=== PATIENT | female | born 2000 | race African-American/Black ===

== ENCOUNTER 2022-09-15 22:53 | Emergency (ER) | payer OTHER | END 2022-09-16 01:18 | disposition home or self-care (01) | LOC: CSHERS 22:53 | DX: O20.0 Threatened abortion (principal); Z3A.01 Less than 8 weeks gestation of pregnancy; F17.210 Nicotine dependence, cigarettes, uncomplicated | CPT/HCPCS: 76856 ==

== ENCOUNTER 2022-09-18 17:31 | Emergency (ER) | payer OTHER | END 2022-09-18 20:26 | LOC: CSHERS 17:31 | DX: O03.9 Complete or unspecified spontaneous abortion without complication (principal); F17.210 Nicotine dependence, cigarettes, uncomplicated | CPT/HCPCS: 36415; 84702; 99282 ==

== ENCOUNTER 2023-02-22 19:49 | Emergency (ER) | payer OTHER | END 2023-02-22 22:49 | disposition home or self-care (01) | LOC: CSHERS 19:49 | DX: O03.9 Complete or unspecified spontaneous abortion without complication (principal) | CPT/HCPCS: 76856 ==

== ENCOUNTER 2023-11-15 13:42 | Observation (INO) | payer OTHER ==
[~2023-11-15 13:42] MED LIST: Iopamidol 300 61% 100 ML VIAL FS ONE
[2023-11-15] MEDS ORDERED: Ipratropium/Albuterol 3 ML NEB ONE (15:37)
[2023-11-15 15:43] LABS: SARS-CoV-2 NAA Rapid Test Not Detected (NotDetected)
[2023-11-15] MEDS ORDERED: Dexamethasone 10 MG/ML VIAL ONE (15:49)
[2023-11-15 16:59] LABS: #Eosinphils 0.4 10x3/uL (0.0-0.5); #Monocytes 0.9 10x3/uL (0.0-1.1); #Neutrophils 6.1 10x3/uL (1.5-8.4); %Basophils 0.3 % (0.0-2.0); %Eosinophils 3.7 % (0.0-6.0); %Lymphocytes 25.2 % (18.0-47.0); %Monocytes 8.7 % (0.0-10.0); %Neutrophils 61.9 % (40.0-75.0); Hematocrit 39.4 % (34.9-44.5); Hemoglobin 12.1 g/dL (12.0-15.5); Mean Corpuscular HGB CONC 30.7 g/dL (32.0-36.0); Mean Corpuscular Hemoglobin 23.2 pg (27.0-33.0); Mean Corpuscular Volume 75.6 fl (81.6-98.3); Mean Platelet Volume 11.2 fl (7.4-10.4); Platelet Count 246 10x3/uL (150-450); RBC Distribution Width 14.8 % (11.5-14.5); Red Blood Cell (RBC) Count 5.21 10x6/uL (3.90-5.03); White Blood Cell (WBC) Count 9.9 10x3/uL (3.5-10.5)
[2023-11-15 17:08] LABS: ALT (SGPT) 8 U/L (8-55); AST (SGOT) 12 U/L (5-34); Albumin 4.1 g/dL (3.5-5.0); Alkaline Phosphatase 59 U/L (40-110); Anion Gap 16 mmol/L (10-20); BUN (Urea Nitrogen) 9 mg/dL (7.0-18.7); Bilirubin, Total 0.6 mg/dL (0.2-1.2); Calc. Creatinine Clearance 0 mL/min (70-130); Calcium 9.1 mg/dL (7.8-10.44); Carbon Dioxide 20 mmol/L (22-29); Chloride 103 mmol/L (98-107); Estimated GFR 98; Globulin 3.6 g/dL (2.4-3.5); Glucose 121 mg/dL (70-105); Protein, Total 7.7 g/dL (6.0-8.3); Sodium 136 mmol/L (136-145)
[2023-11-15] MEDS ORDERED: Potassium Bicarbonate/Cit Ac 20 MEQ TAB ONE ×3 (17:42→17:53)
[2023-11-15 19:33] LABS: Lactic Acid 2.9 mmol/L (0.5-2.2)
[2023-11-15 20:07] LABS: Bilirubin Neg (Negative); Blood, Urine Negative (Negative); Clarity Clear (Clear); Glucose, Urine (Dipstick) Normal (Negative); Ketone, Urine Negative (Negative); Leukocyte 25 (Negative); Nitrite Negative (Negative); Protein, Urine (Dipstick) 15 mg/dl (Neg-Trace); Specific Gravity, Urine 1.015 (1.005-1.030); Urobilinogen Normal mg/dL (Less than 2)
[2023-11-15 20:10] LABS: Pregnancy Test - Urine (BHCG) Negative (Negative); Pregu Control Background? CLEAR/WHITE (CLR/WHITE); Pregu Control Bar Appear? YES (CONTROL BAR); Specific Gravity 1.015 (1.002-1.036)
[2023-11-15 20:31] LABS: Bacteria/HPF None Seen HPF (None Seen); CAUTI Indications for Culture Pelvic or flank pain; RBC/HPF 0-3 HPF (0-3); Squamous Epithelial 0-3 HPF (0-3); Urine Culture Reflex No No
[2023-11-15 23:56] LABS: Amphetamine Not Detected (NotDetected); Barbiturates Screen Not Detected (NotDetected); Benzodiazepine Screen Not Detected (NotDetected); Cocaine Metabolite Screen Not Detected (NotDetected); Methadone Not Detected (NotDetected); Methamphetamine Not Detected (NotDetected); Opiate Screen Not Detected (NotDetected); Oxycodone Screen Not Detected (NotDetected); Phencyclidine (PCP) Not Detected (NotDetected); THC/Cannabinoid Screen Detected (NotDetected); Tricyclic Screen Not Detected (NotDetected)
[2023-11-16 00:29] VITALS: BMI 24.8
[2023-11-16] MEDS ORDERED: D5 1/2 NS w/20 mEq KCL 1,000 ML IV SCH (02:00)
[2023-11-16] MEDS ORDERED: Potassium Chloride 20 MEQ TAB PO SCH (02:00)
[2023-11-16 02:14] LABS: Lactic Acid 2.1 mmol/L (0.5-2.2)
[2023-11-16] MEDS ORDERED: FLU VACC QS2023-24(6MOS UP)/PF 60 MCG/0.5 ML SYRINGE IM ONE (03:45)
[2023-11-16 05:40] LABS: #Monocytes 0.6 10x3/uL (0.0-1.1); #Neutrophils 9.1 10x3/uL (1.5-8.4); %Basophils 0.1 % (0.0-2.0); %Lymphocytes 8.4 % (18.0-47.0); %Monocytes 5.8 % (0.0-10.0); %Neutrophils 85.3 % (40.0-75.0); Hematocrit 34.5 % (34.9-44.5); Hemoglobin 10.9 g/dL (12.0-15.5); Mean Corpuscular HGB CONC 31.6 g/dL (32.0-36.0); Mean Corpuscular Hemoglobin 23.4 pg (27.0-33.0); Mean Corpuscular Volume 74.2 fl (81.6-98.3); Mean Platelet Volume 11.7 fl (7.4-10.4); Platelet Count 243 10x3/uL (150-450); RBC Distribution Width 14.9 % (11.5-14.5); Red Blood Cell (RBC) Count 4.65 10x6/uL (3.90-5.03); White Blood Cell (WBC) Count 10.6 10x3/uL (3.5-10.5)
[2023-11-16 06:00] LABS: Anion Gap 14 mmol/L (10-20); BUN (Urea Nitrogen) 9 mg/dL (7.0-18.7); CK (CPK) 81 U/L (29-168); Calc. Creatinine Clearance 131 mL/min (70-130); Carbon Dioxide 20 mmol/L (22-29); Chloride 108 mmol/L (98-107); Estimated GFR 125; Glucose 124 mg/dL (70-105); Magnesium 1.9 mg/dL (1.6-2.6); Potassium 4.2 mmol/L (3.5-5.1); Sodium 138 mmol/L (136-145)
[2023-11-16 06:21] LABS: Platelet Adequacy Comment Appears Adequate
[2023-11-16 06:22] LABS: Microcytosis SLIGHT = 6-15 cells (100X) (0-5/hpf)
[2023-11-16 08:18] VITALS: BP 113/70; TEMP 98.2
== END 2023-11-16 11:37 | disposition home or self-care (01) ==
LOC: CSHERS 13:42 → CSHTELE 23:09 → UNDOADMOB 11-16 00:16 → UNDODISOB 11-16 11:37
PROVIDERS: ADMIT Family Medicine; ATTEND Family Medicine
DX: R53.1 Weakness (principal); R51.9 Headache, unspecified; R19.7 Diarrhea, unspecified; R79.89 Other specified abnormal findings of blood chemistry; E87.6 Hypokalemia; D64.9 Anemia, unspecified; F12.90 Cannabis use, unspecified, uncomplicated; F17.200 Nicotine dependence, unspecified, uncomplicated
CPT/HCPCS: 36415; 71045; 71260; 74177; 80048; 80053; 80306; 81001; 81025; 82550; 83605; 83735; 85025; 87040; 94640; 96360; 96361; 96372; G0378; J1100; J1650; J3480; J7620; Q9967

== ENCOUNTER 2024-01-20 17:48 | Emergency (ER) | payer OTHER ==
[2024-01-20 18:47] LABS: Influenza A by NAA Not Detected (NotDetected); Influenza B by NAA Not Detected (NotDetected); SARS-CoV-2 NAA Rapid Test Not Detected (NotDetected)
== END 2024-01-20 18:15 | disposition home or self-care (01) ==
LOC: CSHERS 17:48
DX: R05.9 Cough, unspecified (principal); M79.10 Myalgia, unspecified site
CPT/HCPCS: 99284